=== PATIENT | female | born 1940 | race Caucasian/White ===

== ENCOUNTER 2024-04-22 12:54 | Inpatient (IN) | payer OTHER ==
[~2024-04-22] VITALS: Ht 162.6 cm; Wt 59.1 kg
[~2024-04-22 12:54] MED LIST: BACL-63 PO; CHOL20009 PO; CYCL-839 PO; FUR40T PO; HYDROCORTISONE PO; ISOSPOW2 PO; LOVA20TA4 PO; METO-289 PO; MORP30TA PO; NORT25CA PO; OMEP20CA74 PO; TRAZ-227 PO; [UNRECOGNIZED DRUG - OTHER]; [UNRECOGNIZED DRUG - OTHER] PO
[2024-04-22 13:29] LABS: Basophils # (auto) 0.1 10 ^3/uL (0-0.2); Basophils % (auto) 0.4 % (0.0-2.0); Eosinophils # (auto) 0 10 ^3/uL (0-0.8); Hematocrit 40.7 % (36.0-46.0); Lymphocytes # (auto) 1.1 10 ^3/uL (0.4-5.4); Lymphocytes % (auto) 5.7 % (10.0-50.0); Mean Corpuscular Hemoglobin 31.5 pg (28.0-32.0); Mean Corpuscular Volume 98.4 fL (80.0-100.0); Monocytes # (auto) 2.9 10 ^3/uL (0-1.3); Monocytes % (auto) 14.8 % (0.0-12.0); Neutrophils # (auto) 15.6 10 ^3/uL (1.6-8.6); Neutrophils % (auto) 79.1 % (37.0-80.0); Nucleated Red Blood Cells % 0.1 %; Red Blood Cells 4.14 10^6/uL (4.0-5.20); Red Cell Distribution Width 15.4 % (11.8-14.3); White Blood Cell 19.8 10^3/uL (4.4-10.8)
[2024-04-22 13:33] LABS: Chloride 124 mmol/L (98-107); Potassium 4.2 mmol/L (3.5-5.1); Sodium 158 mmol/L (136-145)
[2024-04-22 13:34] LABS: Anion Gap 4 (5-15); Calcium 9.7 mg/dL (8.5-10.1); Carbon Dioxide 30 mmol/L (20-30)
[2024-04-22 13:39] LABS: BUN/Creatinine Ratio 25.5 (10.0-20.0); Blood Urea Nitrogen 25 mg/dL (9-23); Glucose 102 mg/dL (74-106)
[2024-04-22] MEDS: SODIUM CHLORIDE 0.9% 1,000 ML IV ONE ×2 (13:49→14:17)
[2024-04-22 13:50] VITALS: PULSE 94; RESP 16; O2SAT 98
[2024-04-22] MEDS: cefTRIAXone 1GM/50ML D5W 50 ML IV ONE (14:18)
[2024-04-22 14:21] LABS: Urine Bacteria FEW /hpf (None Seen); Urine Blood 3+ /uL (Negative); Urine Clarity Ex.Turbid (Clear); Urine Color Light-Orange (Yellow); Urine Hyaline Cast MANY /lpf (0 - 2); Urine Mucus MODERATE (None Seen); Urine Protein, UAD 1+ (Negative); Urine Specific Gravity 1.018 (1.001-1.035); Urine Urobilinogen Normal (Negative); Urine WBC 591 /hpf (0 - 5); Urine WBC Clumps PRESENT /hpf (None Seen); Urine pH 5.5 (5.0-9.0)
[2024-04-22] MEDS ORDERED: ACETAMINOPHEN IV 1000 MG/100ML (10MG/ML) IV PRN (15:15)
[2024-04-22 19:10] VITALS: PULSE 94; RESP 16; O2SAT 99
[2024-04-22] MEDS ORDERED: ONDANSETRON HCL 4 MG/2 ML VIAL IV PRN (21:00)
[2024-04-22] MEDS ORDERED: ACETAMINOPHEN 325 MG TAB PO PRN (21:00)
[2024-04-22] MEDS: D5W 5% 1,000 ML IV SCH (21:15)
[2024-04-22] MEDS: ATORVASTATIN 20 MG TAB PO SCH (21:22)
[2024-04-23] VITALS (8 sets, daily range): BP systolic 123–156; BP diastolic 59–87; PULSE 99–111; RESP 18–21; TEMP 97.2–98.5; O2SAT 89–97
[2024-04-23 03:14] LABS: Basophils # (auto) 0.1 10 ^3/uL (0-0.2); Basophils % (auto) 0.5 % (0.0-2.0); Eosinophils # (auto) 0 10 ^3/uL (0-0.8); Eosinophils % (auto) 0.1 % (0.0-7.0); Hematocrit 42.8 % (36.0-46.0); Hemoglobin 13.8 g/dL (12.2-16.2); Lymphocytes # (auto) 1.2 10 ^3/uL (0.4-5.4); Lymphocytes % (auto) 5.8 % (10.0-50.0); Mean Corpuscular Hemoglobin 31.9 pg (28.0-32.0); Mean Corpuscular Hgb Conc. 32.3 g/dL (32.0-36.0); Mean Corpuscular Volume 98.7 fL (80.0-100.0); Monocytes # (auto) 2.5 10 ^3/uL (0-1.3); Monocytes % (auto) 11.9 % (0.0-12.0); Neutrophils # (auto) 17.3 10 ^3/uL (1.6-8.6); Neutrophils % (auto) 81.7 % (37.0-80.0); Red Blood Cells 4.34 10^6/uL (4.0-5.20); Red Cell Distribution Width 15.3 % (11.8-14.3); White Blood Cell 21.1 10^3/uL (4.4-10.8)
[2024-04-23 03:34] LABS: Albumin 3.4 g/dL (3.2-4.8); Alkaline Phosphatase 68 U/L (46-116); Anion Gap 8 (5-15); Aspartate Aminotransferase 12 U/L (13-40); BUN/Creatinine Ratio 26.4 (10.0-20.0); Blood Urea Nitrogen 24 mg/dL (9-23); Calcium 9.9 mg/dL (8.7-10.4); Carbon Dioxide 28 mmol/L (20-30); Chloride 123 mmol/L (98-107); Glucose 91 mg/dL (74-106); Potassium 3.9 mmol/L (3.5-5.1); Sodium 159 mmol/L (136-145)
[2024-04-23 03:35] LABS: Bilirubin, Total 1.2 mg/dL (0.2-1.0); Total Protein 5.8 g/dL (5.7-8.2)
[2024-04-23 03:37] LABS: Alanine Aminotransferase < 9 U/L (7-40)
[2024-04-23] MEDS: LEVOTHYROXINE SODIUM 25 MCG TAB PO SCH (06:17)
[2024-04-23] MEDS: METOPROLOL SUCCINATE XL 50 MG TAB PO SCH (11:54)
[2024-04-23] MEDS: DIGOXIN 0.125 MG TAB PO SCH (11:54)
[2024-04-23] MEDS: cefTRIAXone 1GM/50ML D5W 50 ML IV SCH (11:54)
[2024-04-23] MEDS: ISOSORBIDE MONONITRATE ER 60 MG TAB PO SCH (11:54)
[2024-04-23] MEDS: ENOXAPARIN SOD 40 MG/0.4 ML SYRINGE SC SCH (12:03)
[2024-04-23] MEDS: DIGOXIN (250MCG/ML) 2 ML AMPULE IV ONE (16:48)
[2024-04-23] MEDS: D5W/SOD CHL 0.45% 1,000 ML IV SCH (16:48)
[2024-04-23 20:22] LABS: Base Excess 0.3 mmol/L (-2.0-2.0)
[2024-04-23] MEDS: D5W 5% 1,000 ML IV SCH (20:30)
[2024-04-23 21:51] LABS: Creatinine, Urine 97.65 mg/dL (30.0-125.0)
[2024-04-24] VITALS (8 sets, daily range): BP systolic 126–161; BP diastolic 68–88; PULSE 54–134; RESP 15–23; TEMP 97.2–98.4; O2SAT 89–99
[2024-04-24] MEDS ORDERED: AMIODARONE 450mg/250ml AE 250 ML IV SCH ×2 (05:00→19:30)
[2024-04-24 06:52] LABS: Anion Gap 13 (5-15); Carbon Dioxide 24 mmol/L (20-30); Chloride 121 mmol/L (98-107); Potassium 3.3 mmol/L (3.5-5.1); Sodium 158 mmol/L (136-145)
[2024-04-24 06:53] LABS: Calcium 9.4 mg/dL (8.7-10.4)
[2024-04-24 06:57] LABS: Glucose 118 mg/dL (74-106); Uric Acid 6.2 mg/dL (3.1-7.8)
[2024-04-24 06:58] LABS: Magnesium 1.8 mg/dL (1.6-2.6)
[2024-04-24 07:02] LABS: BUN/Creatinine Ratio 24.7 (10.0-20.0); Blood Urea Nitrogen 22 mg/dL (9-23)
[2024-04-24] MEDS: GASTROGRAFIN 120 ML SOL ONE (08:16)
[2024-04-24] MEDS: EZ PAQUE SUSP 12OZ BTL ONE (08:16)
[2024-04-24] MEDS ORDERED: POTASSIUM CHLORIDE 40 MEQ, LIDOCAINE 1% (LOCAL ANESTH.) 4 ML in SODIUM CHL 0.9% 250 ML IV ONE (18:30)
[2024-04-24] MEDS: MAGNESIUM SULFATE 1GM/100ML 100 ML IV ONE (20:39)
[2024-04-24] MEDS: FUROSEMIDE 20 MG/2 ML VIAL IV ONE (21:35)
[2024-04-24] MEDS: AMIODARONE BOLUS KIT 100 ML IV ONE (21:47)
[2024-04-24] MEDS: MUPIROCIN 2% OINT 15gm or 22gm FOR MRSA NARES EACHNOSTRI SCH (21:53)
[2024-04-24] MEDS: AMIODARONE 450mg/250ml AE 250 ML IV SCH (22:54)
[2024-04-24] MEDS: POTASSIUM CHLORIDE 40 MEQ, LIDOCAINE 1% (LOCAL ANESTH.) 4 ML in SODIUM CHL 0.9% 250 ML IV ONE (22:57)
[2024-04-25] VITALS (8 sets, daily range): BP systolic 107–154; BP diastolic 53–69; PULSE 64–84; RESP 16–19; TEMP 97.4–98.2; O2SAT 91–98
[2024-04-25] MEDS ORDERED: AMIODARONE 450mg/250ml AE 250 ML IV SCH (04:30)
[2024-04-25] MEDS: AMIODARONE 450mg/250ml AE 250 ML IV SCH (05:03)
[2024-04-25 06:44] LABS: Basophils # (auto) 0.2 10 ^3/uL (0-0.2); Eosinophils # (auto) 0.1 10 ^3/uL (0-0.8); Eosinophils % (auto) 0.6 % (0.0-7.0); Hematocrit 42.1 % (36.0-46.0); Hemoglobin 13.4 g/dL (12.2-16.2); Lymphocytes # (auto) 1.8 10 ^3/uL (0.4-5.4); Lymphocytes % (auto) 9.3 % (10.0-50.0); Mean Corpuscular Hemoglobin 31.3 pg (28.0-32.0); Mean Corpuscular Hgb Conc. 31.8 g/dL (32.0-36.0); Mean Corpuscular Volume 98.3 fL (80.0-100.0); Monocytes # (auto) 2.2 10 ^3/uL (0-1.3); Monocytes % (auto) 11.4 % (0.0-12.0); Neutrophils # (auto) 14.8 10 ^3/uL (1.6-8.6); Neutrophils % (auto) 77.7 % (37.0-80.0); Nucleated Red Blood Cells % 0.2 %; Red Blood Cells 4.28 10^6/uL (4.0-5.20); Red Cell Distribution Width 15.2 % (11.8-14.3)
[2024-04-25 06:57] LABS: Calcium 9.3 mg/dL (8.7-10.4); Chloride 118 mmol/L (98-107); Potassium 3.8 mmol/L (3.5-5.1); Sodium 156 mmol/L (136-145)
[2024-04-25 06:58] LABS: Anion Gap 11 (5-15); Carbon Dioxide 27 mmol/L (20-30)
[2024-04-25 07:03] LABS: BUN/Creatinine Ratio 22.8 (10.0-20.0); Blood Urea Nitrogen 23 mg/dL (9-23); Glucose 143 mg/dL (74-106)
[2024-04-25] MEDS ORDERED: FUROSEMIDE 20 MG/2 ML VIAL IV SCH (10:00)
[2024-04-25] MEDS: FUROSEMIDE 20 MG/2 ML VIAL IV SCH (11:05)
[2024-04-25] MEDS: CYANOCOBALAMIN (B-12) 1000 MCG/1 ML VIAL IM ONE (18:34)
[2024-04-26] VITALS (20 sets, daily range): BP systolic 95–144; BP diastolic 27–88; PULSE 50–136; RESP 11–33; TEMP 97.5–98.2; O2SAT 76–98
[2024-04-26 06:16] LABS: Chloride 115 mmol/L (98-107); Potassium 3.2 mmol/L (3.5-5.1)
[2024-04-26 06:17] LABS: Anion Gap 7 (5-15); Calcium 8.5 mg/dL (8.7-10.4); Carbon Dioxide 29 mmol/L (20-30)
[2024-04-26 06:20] LABS: Sodium 151 mmol/L (136-145)
[2024-04-26 06:22] LABS: Blood Urea Nitrogen 20 mg/dL (9-23); Glucose 136 mg/dL (74-106)
[2024-04-26 06:24] LABS: Basophils # (auto) 0.1 10 ^3/uL (0-0.2); Basophils % (auto) 0.7 % (0.0-2.0); Eosinophils # (auto) 0.2 10 ^3/uL (0-0.8); Eosinophils % (auto) 0.9 % (0.0-7.0); Hemoglobin 14.4 g/dL (12.2-16.2); Lymphocytes # (auto) 1.2 10 ^3/uL (0.4-5.4); Lymphocytes % (auto) 5.8 % (10.0-50.0); Mean Corpuscular Hemoglobin 31.1 pg (28.0-32.0); Mean Corpuscular Hgb Conc. 32.1 g/dL (32.0-36.0); Mean Corpuscular Volume 97.1 fL (80.0-100.0); Monocytes # (auto) 2.5 10 ^3/uL (0-1.3); Monocytes % (auto) 12.3 % (0.0-12.0); Neutrophils # (auto) 16.2 10 ^3/uL (1.6-8.6); Neutrophils % (auto) 80.3 % (37.0-80.0); Nucleated Red Blood Cells % 0.2 %; Red Blood Cells 4.63 10^6/uL (4.0-5.20); Red Cell Distribution Width 15.1 % (11.8-14.3); White Blood Cell 20.2 10^3/uL (4.4-10.8)
[2024-04-26 08:06] LABS: RPR Non Reactive (Non Reactive)
[2024-04-26] MEDS: POTASSIUM CHL 20MEQ/100ML 100 ML IV SCH (09:37)
[2024-04-26 18:40] LABS: Hematocrit 49.1 % (36.0-46.0); Hemoglobin 15.5 g/dL (12.2-16.2); Mean Corpuscular Hemoglobin 30.9 pg (28.0-32.0); Mean Corpuscular Hgb Conc. 31.6 g/dL (32.0-36.0); Mean Corpuscular Volume 97.7 fL (80.0-100.0); Red Blood Cells 5.03 10^6/uL (4.0-5.20); Red Cell Distribution Width 15.4 % (11.8-14.3); White Blood Cell 29.4 10^3/uL (4.4-10.8)
[2024-04-26 18:42] LABS: Basophils % (manual) 0 (0.0-2.0); Blast Cells 0; Eosinophils % (manual) 0 (0-7); Metamyelocytes % 0; Myelocytes % 0; Promyelocytes % 0; Reactive Lymphocytes 0
[2024-04-26 19:00] LABS: Alanine Aminotransferase 28 U/L (7-40); Albumin 3.1 g/dL (3.2-4.8); Alkaline Phosphatase 85 U/L (46-116); Anion Gap 10 (5-15); Aspartate Aminotransferase 64 U/L (13-40); BUN/Creatinine Ratio 23.4 (10.0-20.0); Blood Urea Nitrogen 22 mg/dL (9-23); Calcium 8.5 mg/dL (8.7-10.4); Carbon Dioxide 26 mmol/L (20-30); Chloride 111 mmol/L (98-107); Glucose 121 mg/dL (74-106); Magnesium 1.6 mg/dL (1.6-2.6); Potassium 3.8 mmol/L (3.5-5.1); Sodium 147 mmol/L (136-145)
[2024-04-26 19:01] LABS: Bilirubin, Total 0.8 mg/dL (0.2-1.0); Total Protein 5.2 g/dL (5.7-8.2)
[2024-04-26 19:02] LABS: Band Neutrophils % (manual) 10; Lymphocytes % (manual) 9 (10.0-50.0); Monocytes % (manual) 6 (0-12); Platelet Estimate Adequate
[2024-04-26 19:03] LABS: Anisocytosis Slight
[2024-04-26] MEDS: AMIODARONE 450mg/250ml AE 250 ML IV SCH (21:15)
[2024-04-26] MEDS: MAGNESIUM SULFATE 1GM/100ML 100 ML IV SCH (21:59)
[2024-04-26] MEDS: POTASSIUM CHL 20MEQ/100ML 100 ML IV ONE (21:59)
[2024-04-26] MEDS ORDERED: EPINEPHrine HCL 1 MG/10 ML SYRG IV ONE (22:01)
[2024-04-26] MEDS: MORPHINE SULFATE INJ 2 MG/ml SYRG IV PRN (22:14)
[2024-04-27] VITALS (17 sets, daily range): BP systolic 95–164; BP diastolic 25–72; PULSE 55–200; RESP 13–30; TEMP 97.3–98.4; O2SAT 92–98
[2024-04-27] MEDS: MORPHINE SULFATE INJ 2 MG/ml SYRG IV PRN (01:14)
[2024-04-27] MEDS: MORPHINE SULFATE INJ 2 MG/ml SYRG ONE (01:16)
[2024-04-27 06:55] LABS: Chloride 110 mmol/L (98-107); Potassium 3.4 mmol/L (3.5-5.1); Sodium 144 mmol/L (136-145)
[2024-04-27 06:56] LABS: Anion Gap 10 (5-15); Carbon Dioxide 24 mmol/L (20-30)
[2024-04-27 07:01] LABS: BUN/Creatinine Ratio 26.1 (10.0-20.0); Blood Urea Nitrogen 23 mg/dL (9-23); Glucose 113 mg/dL (74-106)
[2024-04-27] MEDS: POTASSIUM CHL 20MEQ/100ML 100 ML IV SCH (09:47)
[2024-04-27] MEDS: MAGNESIUM SULFATE 1GM/100ML 100 ML IV ONE (09:48)
[2024-04-27] MEDS: D5W/SOD CHL 0.45%/KCL 40MEQ 1,000 ML IV ONE (12:43)
[2024-04-27] MEDS: PIPERACILLIN-TAZOB 3.375GM 100 ML IV SCH (13:35)
[2024-04-27] MEDS ORDERED: CLINIMIX PER PHARMACY 0 ML IV SCH (15:45)
[2024-04-27] MEDS ORDERED: DEXTROSE (50%) 50ML SYRG IV SCH (20:00)
[2024-04-27] MEDS: AMINO ACID INFUSION IN D10W 1,000 ML IV SCH (20:07)
[2024-04-28] VITALS (8 sets, daily range): BP systolic 91–155; BP diastolic 50–64; PULSE 73–99; RESP 15–25; TEMP 97.4–98.3; O2SAT 90–99
[2024-04-28] MEDS: InsuLIN REG 1unit/0.01ml Soln (100units/ml) SC SCH
[2024-04-28] MEDS: ACCU-CHEK COMFORT CURVE STRIP VI SCH (00:03)
[2024-04-28 07:18] LABS: Alanine Aminotransferase 13 U/L (7-40); Albumin 2.7 g/dL (3.2-4.8); Alkaline Phosphatase 71 U/L (46-116); Anion Gap 5 (5-15); Aspartate Aminotransferase 13 U/L (13-40); Bilirubin, Total 0.7 mg/dL (0.2-1.0); Calcium 7.6 mg/dL (8.7-10.4); Carbon Dioxide 27 mmol/L (20-30); Chloride 110 mmol/L (98-107); Glucose 119 mg/dL (74-106); Magnesium 2.1 mg/dL (1.6-2.6); Phosphorus 1.8 mg/dL (2.4-5.1); Potassium 3.7 mmol/L (3.5-5.1); Sodium 142 mmol/L (136-145); Total Protein 4.7 g/dL (5.7-8.2)
[2024-04-28 08:52] LABS: Blood Urea Nitrogen 18 mg/dL (9-23)
[2024-04-28] MEDS: POTASSIUM PHOSPHATE 44 MEQ in D5W 5% 250 ML IV ONE (16:40)
[2024-04-28] MEDS: hydrALAZINE HCL 20 MG/ML VL IV PRN (18:13)
[2024-04-29] VITALS (7 sets, daily range): BP systolic 124–173; BP diastolic 49–64; PULSE 53–78; RESP 16–21; TEMP 96.7–97.9; O2SAT 93–96
[2024-04-29 09:10] LABS: Alanine Aminotransferase 10 U/L (7-40); Albumin 2.7 g/dL (3.2-4.8); Alkaline Phosphatase 72 U/L (46-116); Anion Gap 10 (5-15); BUN/Creatinine Ratio 29.2 (10.0-20.0); Blood Urea Nitrogen 21 mg/dL (9-23); Calcium 8.2 mg/dL (8.7-10.4); Carbon Dioxide 24 mmol/L (20-30); Chloride 106 mmol/L (98-107); Glucose 110 mg/dL (74-106); Potassium 3.1 mmol/L (3.5-5.1); Sodium 140 mmol/L (136-145)
[2024-04-29 09:11] LABS: Aspartate Aminotransferase 11 U/L (13-40); Bilirubin, Total 0.9 mg/dL (0.2-1.0); Phosphorus 2.8 mg/dL (2.4-5.1)
[2024-04-29 09:24] LABS: Magnesium 1.5 mg/dL (1.6-2.6)
[2024-04-29] MEDS: MAGNESIUM SULFATE 1GM/100ML 100 ML IV SCH (13:17)
[2024-04-29] MEDS: POTASSIUM CHL 20MEQ/100ML 100 ML IV SCH (15:40)
[2024-04-30] VITALS (9 sets, daily range): BP systolic 115–180; BP diastolic 44–93; PULSE 64–84; RESP 16–20; TEMP 97.4–98.7; O2SAT 91–100
[2024-04-30] MEDS: POTASSIUM CHL 20MEQ/100ML 100 ML IV SCH ×2 (00:08→12:03)
[2024-04-30] MEDS ORDERED: VANCOMYCIN PER PHARMACY 0 MG IV SCH (10:30)
[2024-04-30 10:49] LABS: Albumin 2.5 g/dL (3.2-4.8); Alkaline Phosphatase 69 U/L (46-116); Anion Gap 4 (5-15); Aspartate Aminotransferase 8 U/L (13-40); BUN/Creatinine Ratio 32.8 (10.0-20.0); Blood Urea Nitrogen 20 mg/dL (9-23); Calcium 8.1 mg/dL (8.7-10.4); Carbon Dioxide 27 mmol/L (20-30); Chloride 107 mmol/L (98-107); Glucose 120 mg/dL (74-106); Phosphorus 1.9 mg/dL (2.4-5.1); Potassium 3.1 mmol/L (3.5-5.1); Sodium 138 mmol/L (136-145)
[2024-04-30 10:50] LABS: Bilirubin, Total 0.9 mg/dL (0.2-1.0); Total Protein 4.6 g/dL (5.7-8.2)
[2024-04-30 10:51] LABS: Alanine Aminotransferase < 9 U/L (7-40); Magnesium 1.9 mg/dL (1.6-2.6)
[2024-04-30 10:56] LABS: Basophils # (auto) 0 10 ^3/uL (0-0.2); Basophils % (auto) 0.1 % (0.0-2.0); Eosinophils # (auto) 0.1 10 ^3/uL (0-0.8); Eosinophils % (auto) 0.3 % (0.0-7.0); Hematocrit 39.7 % (36.0-46.0); Hemoglobin 13.2 g/dL (12.2-16.2); Lymphocytes # (auto) 0.6 10 ^3/uL (0.4-5.4); Lymphocytes % (auto) 2.5 % (10.0-50.0); Mean Corpuscular Hemoglobin 32.3 pg (28.0-32.0); Mean Corpuscular Hgb Conc. 33.3 g/dL (32.0-36.0); Mean Corpuscular Volume 96.9 fL (80.0-100.0); Monocytes # (auto) 3.2 10 ^3/uL (0-1.3); Neutrophils # (auto) 20.6 10 ^3/uL (1.6-8.6); Neutrophils % (auto) 84.1 % (37.0-80.0); Red Blood Cells 4.09 10^6/uL (4.0-5.20); Red Cell Distribution Width 15.7 % (11.8-14.3); White Blood Cell 24.6 10^3/uL (4.4-10.8)
[2024-04-30] MEDS: VANCOMYCIN 1GM/200ML 200 ML IV ONE (13:15)
[2024-05-01] VITALS (8 sets, daily range): BP systolic 123–150; BP diastolic 42–63; PULSE 70–86; RESP 15–18; TEMP 97.5–98.1; O2SAT 95–99
[2024-05-01] MEDS: VANCOMYCIN 750mg/150ml 150 ML IV SCH (01:07)
[2024-05-01 06:27] LABS: Albumin 2.5 g/dL (3.2-4.8); Alkaline Phosphatase 86 U/L (46-116); Anion Gap 8 (5-15); Aspartate Aminotransferase 14 U/L (13-40); BUN/Creatinine Ratio 30.5 (10.0-20.0); Bilirubin, Total 0.9 mg/dL (0.2-1.0); Blood Urea Nitrogen 18 mg/dL (9-23); Calcium 7.9 mg/dL (8.7-10.4); Carbon Dioxide 23 mmol/L (20-30); Chloride 106 mmol/L (98-107); Glucose 94 mg/dL (74-106); Magnesium 1.9 mg/dL (1.6-2.6); Phosphorus 1.7 mg/dL (2.4-5.1); Potassium 3.4 mmol/L (3.5-5.1); Sodium 137 mmol/L (136-145)
[2024-05-01 06:28] LABS: Total Protein 4.6 g/dL (5.7-8.2)
[2024-05-01 06:31] LABS: Alanine Aminotransferase < 9 U/L (7-40); Basophils # (auto) 0.1 10 ^3/uL (0-0.2); Basophils % (auto) 0.3 % (0.0-2.0); Eosinophils # (auto) 0.1 10 ^3/uL (0-0.8); Eosinophils % (auto) 0.3 % (0.0-7.0); Hemoglobin 13.5 g/dL (12.2-16.2); Lymphocytes # (auto) 0.8 10 ^3/uL (0.4-5.4); Lymphocytes % (auto) 3.8 % (10.0-50.0); Mean Corpuscular Hemoglobin 31.2 pg (28.0-32.0); Mean Corpuscular Hgb Conc. 32.1 g/dL (32.0-36.0); Mean Corpuscular Volume 97.2 fL (80.0-100.0); Monocytes # (auto) 3.2 10 ^3/uL (0-1.3); Monocytes % (auto) 15.7 % (0.0-12.0); Neutrophils # (auto) 16.5 10 ^3/uL (1.6-8.6); Neutrophils % (auto) 79.9 % (37.0-80.0); Red Blood Cells 4.32 10^6/uL (4.0-5.20); Red Cell Distribution Width 16.1 % (11.8-14.3); White Blood Cell 20.6 10^3/uL (4.4-10.8)
[2024-05-01] MEDS: POTASSIUM PHOSPHATE 44 MEQ in D5W 5% 250 ML IV ONE (18:35)
== END 2024-05-01 20:45 | disposition hospice, home (50) | DRG 871 ==
LOC: ER 12:54 → EDBD 12:54 → OVERFLOW 21:52 → CENTRAL 04-23 03:56 → TELE-CENTR 04-25 07:37 → ICU CENTRL 04-26 20:34 → TELE-CENTR 04-27 11:58
PROVIDERS: ADMIT Internal Medicine; ATTEND Internal Medicine
PROC: 5A12012 Performance of Cardiac Output, Single, Manual (ICD-10-PCS; principal; 2024-04-26)
PROC: 5A2204Z Restoration of Cardiac Rhythm, Single (ICD-10-PCS; 2024-04-26)
DX: A41.9 Sepsis, unspecified organism (principal); G93.41 Metabolic encephalopathy; J69.0 Pneumonitis due to inhalation of food and vomit; J96.01 Acute respiratory failure with hypoxia; I46.9 Cardiac arrest, cause unspecified; I50.43 Acute on chronic combined systolic (congestive) and diastolic (congestive) heart failure; J18.9 Pneumonia, unspecified organism; E87.0 Hyperosmolality and hypernatremia; N30.00 Acute cystitis without hematuria; I47.20 Ventricular tachycardia, unspecified; E46 Unspecified protein-calorie malnutrition; Z66 Do not resuscitate; E86.0 Dehydration; E78.5 Hyperlipidemia, unspecified; I11.0 Hypertensive heart disease with heart failure; I48.0 Paroxysmal atrial fibrillation; K44.9 Diaphragmatic hernia without obstruction or gangrene; R62.7 Adult failure to thrive; I07.1 Rheumatic tricuspid insufficiency; F03.90 Unspecified dementia, unspecified severity, without behavioral disturbance, psychotic disturbance, mood disturbance, and anxiety; E03.9 Hypothyroidism, unspecified; E87.8 Other disorders of electrolyte and fluid balance, not elsewhere classified; I44.0 Atrioventricular block, first degree; K21.9 Gastro-esophageal reflux disease without esophagitis; I34.0 Nonrheumatic mitral (valve) insufficiency; I27.20 Pulmonary hypertension, unspecified; E11.9 Type 2 diabetes mellitus without complications; Z79.899 Other long term (current) drug therapy; Z51.5 Encounter for palliative care; Z68.22 Body mass index [BMI] 22.0-22.9, adult
CPT/HCPCS: 36415; 36600; 70450; 71045; 74220; 80048; 80053; 81001; 82140; 82570; 82607; 82805; 82962; 83605; 83735; 83880; 83930; 83935; 84100; 84295; 84300; 84443; 84550; 85007; 85025; 85027; 86592; 87040; 87081; 87086; 92610; 92950; 92960; 93005; 93306; G0378; J0131; J2001; J2543; J3480; J7060